=== PATIENT | female | born 1950 | race Caucasian/White ===

== ENCOUNTER → 2023-11-01 | Outpatient (CLI) | payer MEDICARE ==
[2023-11-01 11:25] LABS: BASO # 0.02 K/mm3 (0.02-0.10); EOS # 0.15 K/mm3 (0.04-0.40); EOS % 2.3 % (1.0-5.0); HEMATOCRIT 37.4 % (37.0-47.0); HEMOGLOBIN 12.1 g/dL (12.5-16.0); MEAN CELL VOLUME 92 fl (78-100); MEAN CORPUSCULAR HEMOGLOBIN 30 pg (27-31); MEAN CORPUSCULAR HGB CONC 32 g/dL (33-37); MEAN PLATELET VOLUME 9.6 fl (7.4-10.4); MONO # 0.55 K/mm3 (0.20-0.80); NEU # 3.56 K/mm3 (1.40-6.50); PLATELET COUNT 277 K/mm3 (130-400); RED BLOOD COUNT 4.07 M/mm3 (4.10-5.30); RED CELL DISTRIBUTION WIDTH 12.5 % (11.5-14.5); WHITE BLOOD COUNT 6.4 K/mm3 (4.8-10.8)
[2023-11-01 11:39] LABS: CALCIUM 9.6 mg/dL (8.3-10.5)
[2023-11-01 11:40] LABS: TOTAL PROTEIN 7.1 g/dL (6.2-8.1)
[2023-11-01 11:42] LABS: TOTAL BILIRUBIN 0.7 mg/dL (0.2-1.2)
[2023-11-01 11:47] LABS: MAGNESIUM 2.27 mg/dL (1.60-2.60)
== END ==
LOC: LAB 10:54
PROVIDERS: Internal Medicine
DX: G60.9 Hereditary and idiopathic neuropathy, unspecified (principal); I49.5 Sick sinus syndrome; E78.2 Mixed hyperlipidemia; K90.9 Intestinal malabsorption, unspecified

== ENCOUNTER → 2024-04-02 | Outpatient (CLI) | payer MEDICARE ==
[2024-04-02 10:04] LABS: BASO # 0.03 K/mm3 (0.02-0.10); EOS # 0.16 K/mm3 (0.04-0.40); EOS % 2.2 % (1.0-5.0); HEMATOCRIT 38.9 % (37.0-47.0); HEMOGLOBIN 12.6 g/dL (12.5-16.0); LYMPH# 2.23 K/mm3 (1.50-4.00); MEAN CELL VOLUME 92 fl (78-100); MEAN CORPUSCULAR HEMOGLOBIN 30 pg (27-31); MEAN CORPUSCULAR HGB CONC 32 g/dL (33-37); MEAN PLATELET VOLUME 9.7 fl (7.4-10.4); MONO # 0.49 K/mm3 (0.20-0.80); NEU # 4.28 K/mm3 (1.40-6.50); PLATELET COUNT 316 K/mm3 (130-400); RED BLOOD COUNT 4.23 M/mm3 (4.10-5.30); RED CELL DISTRIBUTION WIDTH 12.5 % (11.5-14.5); WHITE BLOOD COUNT 7.2 K/mm3 (4.8-10.8)
[2024-04-02 10:09] LABS: ALBUMIN 4.1 g/dL (3.4-4.8)
[2024-04-02 10:11] LABS: CALCIUM 9.8 mg/dL (8.3-10.5)
[2024-04-02 10:12] LABS: TOTAL PROTEIN 7.6 g/dL (6.2-8.1)
[2024-04-02 10:14] LABS: TOTAL BILIRUBIN 0.5 mg/dL (0.2-1.2)
== END ==
LOC: LAB 09:27
PROVIDERS: Internal Medicine
DX: R55 Syncope and collapse (principal)

== ENCOUNTER → 2024-04-06 | Outpatient (CLI) | payer MEDICARE ==
[~2024-04-06] MED LIST: Gadoterate 20 ML VIAL IV ONE
== END ==
LOC: RAD 07:51
DX: G31.9 Degenerative disease of nervous system, unspecified (principal); I67.82 Cerebral ischemia
CPT/HCPCS: A9575

== ENCOUNTER → 2024-04-06 | Outpatient (CLI) | payer MEDICARE | LOC: RAD 07:47 | DX: R55 Syncope and collapse (principal) ==

== ENCOUNTER → 2024-04-18 | Outpatient (CLI) | payer MEDICARE | LOC: RAD 16:04 | DX: R55 Syncope and collapse (principal) ==